=== PATIENT | male | born 1995 | race Hispanic/Latino ===

== ENCOUNTER → 2019-01-25 10:33 | Outpatient (CLI) | payer OTHER, SELFPAY ==
--- NOTE | 2019-01-25 10:41 | DI.RAD.S_ITS ---
PROCEDURE: XR LUMBAR SPINE 2-3V INDICATIONS: Pain to low back after lifting heavy object TECHNIQUE: 3 views of the lumbar spine were acquired. COMPARISON: None. FINDINGS: Bones: 5 [id number] vertebrae are present. There is normal bony alignment. No vertebral body compression fractures. No suspicious bony lesions. Soft tissues: Overlying bowel gas pattern is normal. No suspicious soft tissue calcifications. IMPRESSION: No fracture. No osseous lesion. If symptoms and/or clinical suspicion for pathology persists, evaluation with MRI may be helpful for further assessment. Dictated by: Stephani Jensen MD, PhD on 01/25/2019 at 11:08 Approved by: Stephani Jensen MD, PhD on 01/25/2019 at 11:10
== END ==
PROVIDERS: Visit Provider Physician Assistant
DX: M54.5 Low back pain (principal)
CPT/HCPCS: 72100

== ENCOUNTER 2019-12-25 15:57 | Emergency (ER) | payer SELFPAY ==
[2019-12-25 16:11] VITALS: BP 124/75; PULSE 69; RESP 17; TEMP 36.6; O2SAT 97
[2019-12-25] MEDS: BACITRACIN OINT 0.9 GM PCKT 1 APPLIC TOP (18:15)
[2019-12-25] MEDS: LIDO 1%/SOD BICARB 8.4% (10ML) 10 ML SYRINGE INJ (18:15)
--- NOTE | 2019-12-25 18:37 | ED_ITS ---
HPI - Wound/Laceration <DANIELLA Archer - Last Filed: 12/25/19 18:49> General Chief Complaint: Wound/Laceration Stated Complaint: Cut Right Hand Time Seen by Provider: 12/25/19 17:31 Source: patient Mode of arrival: Ambulatory Limitations: no limitations History of Present Illness HPI narrative: This is a 24-year-old male, who has no pertinent medical history presents to ED with 2.5 cm laceration in dorsal aspect of right metacarpal of index finger which happened around 3:00 p.m. today from a piece of glass when he was cleaning dishes. Patient reports tetanus immunization was updated last than 5 years ago. He reports no problem flexing and extending his affected hand with intact sensation distally. Related Data Home Medications Medication Instructions Recorded Confirmed No Known Home Medications 12/25/19 12/25/19 Allergies Allergy/AdvReac Type Severity Reaction Status Date / Time No Known Drug Allergies Allergy Verified 12/25/19 16:14 Review of Systems <DANIELLA Archer - Last Filed: 12/25/19 18:49> Review of Systems Narrative: General: Denies fever, chills, fatigue, malaise, sweats. HEENT: Denies sinus pain, ear pain, sore throat, difficulty swallowing, dizziness. Respiratory: Denies dyspnea, cough, wheezing, hemoptysis, sputum. Cardiovascular: Denies chest pain, palpitations, orthopnea, edema. Gastrointestinal: Denies nausea, vomiting, abdominal pain, diarrhea, constipation, melena. : Denies dysuria, frequency, incontinence, hematuria, urinary retention. Musculoskeletal: Denies weakness, joint pain or bony pain. Skin: See HPI Neurologic: Denies weakness, headache, numbness, change in speech, confusion, seizures, incoordination. Psychiatric: No concerning psychosocial issues. 12-point review of systems is negative except for those stated above. Patient History <DANIELLA Archer - Last Filed: 12/25/19 18:49> Medical History No significant past medical history (Acute) Surgical History No pertinent past surgical history (Acute) Social History Smoking Status: Never smoker Smoking Status: Never smoker alcohol intake frequency: 0-2 drinks per day Substance Use Type: does not use Exam <DANIELLA Archer - Last Filed: 12/25/19 18:49> Narrative Exam Narrative: General appearance: well developed, well nourished, in no acute distress. Head: normocephalic, atraumatic, no scalp lesions, non-tender. ENT: Hearing grossly intact. Airway patent. Neck/Thyroid: neck supple, full range of motion, no visible masses or meningeal signs. No JVD, non-tender without lymphadenopathy. Skin: 2.5 cm linear laceration on right dorsal aspect of index finger metacarpal without active bleeding. Warm and dry and appropriate color for ethnicity. Heart: no clubbing, no cyanosis, no edema. Lungs: Breathing even and unlabored. No stridor. No accessory muscles used. Able to speak in full sentences. Chest: normal shape and expansion. Abdomen: non-obese, non-distended. Neurologic: alert and oriented. 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 Psych: good eye contact, normal affect. Initial Vital Signs Initial Vital Signs: Vital Signs Temperature 97.8 F 12/25/19 16:11 Pulse Rate 69 12/25/19 16:11 Respiratory Rate 17 12/25/19 16:11 Blood Pressure 124/75 12/25/19 16:11 Pulse Oximetry 97 12/25/19 16:11 Extrem Right upper extremity: hand Details: abnormal to inspection, normal capillary refill, neuromotor exam normal, neurosensory exam normal, tendon exam normal, normal ROM of fingers and laceration; no ecchymosis, no crepitus and no foreign bodies <Kiko Peacock MD - Last Filed: 12/26/19 08:16> Initial Vital Signs Initial Vital Signs: Vital Signs Temperature 97.8 F 12/25/19 16:11 Pulse Rate 69 12/25/19 16:11 Respiratory Rate 17 12/25/19 16:11 Blood Pressure 124/75 12/25/19 16:11 Pulse Oximetry 97 12/25/19 16:11 Procedures <DANIELLA Archer - Last Filed: 12/25/19 18:49> Laceration Repair Laceration 1: Site: hand Side (If applicable): right Size (cm): 2.5 Description: linear Depth: simple, single layer Local Anesthetic: lidocaine 1% and with bicarb Amount of anesthesia used (mL): 1 Pre-repair: wound explored and irrigated extensively Skin layer closed with: nylon Size (cm): 4-0 Number of sutures: 2 Technique: simple, interrupted Scores <DANIELLA Archer - Last Filed: 12/25/19 18:49> GCS Stefan coma scale eye opening: Spontaneous Stefan coma scale verbal response: Orientated Stefan coma scale motor response: Obey commands [place] coma scale total score: 15 Course <DANIELLA Archer - Last Filed: 12/25/19 18:49> Orders Ordered: Discontinued Medications Bacitracin (Bacitracin) 1 applic TOP NOW ONE Stop: 12/25/19 18:12 Last Admin: 12/25/19 18:15 Dose: 1 applic Documented by: DEMETRICE Lidocaine/Sodium Bicarbonate (Buffered Lidocaine 10 Ml Syr) 10 ml INJ NOW ONE Stop: 12/25/19 18:12 Last Admin: 12/25/19 18:15 Dose: 10 ml Documented by: DEMETRICE Vital Signs Vital signs: Vital Signs - 8 hr 12/25/19 16:11 Temperature 97.8 F Pulse Rate 69 Respiratory Rate 17 Blood Pressure 124/75 Pulse Oximetry 97 <Kiko Peacock MD - Last Filed: 12/26/19 08:16> Orders Ordered: Discontinued Medications Bacitracin (Bacitracin) 1 applic TOP NOW ONE Stop: 12/25/19 18:12 Last Admin: 12/25/19 18:15 Dose: 1 applic Documented by: DEMETRICE Lidocaine/Sodium Bicarbonate (Buffered Lidocaine 10 Ml Syr) 10 ml INJ NOW ONE Stop: 12/25/19 18:12 Last Admin: 12/25/19 18:15 Dose: 10 ml Documented by: DEMETRICE Vital Signs Vital signs: Vital Signs - 8 hr 12/25/19 16:11 Temperature 97.8 F Pulse Rate 69 Respiratory Rate 17 Blood Pressure 124/75 Pulse Oximetry 97 MDM - Wound/Laceration <DANIELLA Archer - Last Filed: 12/25/19 18:49> Differential Diagnosis Differential diagnosis: Likely laceration Medical Records Attestation: I reviewed the patient's medical records. MDM Narrative Medical decision making narrative: This is a 24-year-old male who has updated tetanus immunization presents to ED with 2.5 cm laceration on his dominant hand on volar aspect of right metacarpal from a piece of glass. Patient has intact sensation and cap refill distally. Patient is able to move all his fingers flexing and extending without difficulty. Laceration has been repaired with 2 sutures. See procedural note. We discussed home wound care, wound recheck in 2 days, suture removal in 7-10 days, to avoid flexing affected hand excessively to protect sutures with patient. Return precautions were discussed with patient and patient verbalized understanding and agreement with treatment plan. Discharge Plan Departure Patient Disposition: Home Clinical Impression: Laceration Discharge Date/Time: 12/25/19 18:50 Instructions: DI for Laceration Repair -- Simple Activity Restrictions/Additional Instructions: You have been diagnosed with [2.5 cm simple laceration on right dominant hand dorsal aspect of metacarpal which has been repaired with 2 sutures]. What to do: *Take your medications as directed. You can take [id number] Tylenol and or Motrin as needed for discomfort. Please do not get your wound soaked in the water until suture removal. Keep your dressing intact for next 24 hrs. After then, you could remove your dressing, wash with soap and water. Pat dry with clean paper towel and dress it with antibiotic ointment. You can change dressing as needed and daily. Please monitor for signs and symptoms for infection such as increasing redness, swelling, warmth, pain, fever, purulent discharge. If this occurs, please return to ED or follow up with your primary care physician since your wound may be gotten infected. Please follow up with your primary care provider in 2-3 days for recheck wound. Your suture should be removed [ 7-10 ] days. This can be done by your primary provider, walk-in clinic or here in ED. Please keep your wound clean, dry and intact all times. Try to avoid excessively flexing your fingers and hand to protect sutures. Prescriptions: No Action No Known Home Medications RF: 0 Referrals: [facility] [Outside] Stand Alone Forms: Work Release Note
[2019-12-25 18:48] VITALS: BP 114/68; PULSE 97; RESP 16; TEMP 36.1; O2SAT 99
== END 2019-12-25 18:50 | disposition home or self-care (01) ==
PROVIDERS: Emergency Provider Nurse Practitioner Family
DX: S61.210A Laceration without foreign body of right index finger without damage to nail, initial encounter (principal); W25.XXXA Contact with sharp glass, initial encounter
CPT/HCPCS: 12001; 99283